=== PATIENT | female | born 1960 | race Caucasian/White ===

== ENCOUNTER 2016-11-29 16:44 | Inpatient (IN) | payer SELFPAY ==
[2016-11-29] VITALS (10 sets, daily range): BP systolic 78–128; BP diastolic 44–77
[~2016-11-29] VITALS: Ht 157.4 cm; Wt 61.9 kg
--- NOTE | ~2016-11-29 | CON ---
[place], [place] REPORT OF CONSULTATION NAME: CHAU AVALOS [facility] #: [id number] UNIT #: [id number] ROOM: 420 DOCTOR: ROGER BURRIS MD BIRTHDATE: [birth year] DOS: 12/03/2016 The patient was seen on 12/03/2016. REASON FOR CONSULTATION: Acute pyelonephritis. CONSULTING DOCTOR: Dr. France CHIEF COMPLAINT: Abdominal pain. HISTORY OF PRESENTING ILLNESS: This is a 55-year-old woman who presented from home with chief complaint of feeling sick with fever, nausea and lack of appetite. This had been going on for the past one week before presentation and it worsened on the day of admission. She also had burning with urination and increased frequency of urination and abnormal odor of urine. She had been throwing up for 2 days prior to presentation. 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 She was admitted in the ICU with sepsis, resuscitated, was placed on broad-spectrum antibiotics for the first 3 days, in spite of that, she continued to spike fever and Infectious Disease consult was obtained. Her urinalysis showed pyuria and urine culture and blood cultures showed E. coli. She had been on Zosyn. PAST MEDICAL HISTORY: Positive for hypertension, depression. PAST SURGICAL HISTORY: History of electrocauterization of bladder per EMR and hemorrhagic kidney when she was 16, which was cauterized. SOCIAL HISTORY: She is a cook. She smokes about a pack per day for the last 34 years, occasional marijuana abuse, drinks 2 drinks every day for the last 30+ years. FAMILY HISTORY: Mother had coronary artery disease. Father is healthy. ALLERGIES: She is allergic to LATEX. HOME MEDICATIONS: Reviewed, includes amlodipine and escitalopram. CURRENT INPATIENT MEDICATIONS: Reviewed. REVIEW OF SYSTEMS: A 14-review of systems otherwise negative unless otherwise specified in the HPI. PHYSICAL EXAMINATION: VITAL SIGNS: Showed a temperature of 98.7, heart rate 51, blood pressure of 90/50, respiratory rate of 18, pulse ox of 94% on nasal cannula. GENERAL APPEARANCE: Awake, alert, oriented in time, place and person. No acute distress. Oral cavity is dry and intact. No ulcers. No thrush. NECK: Supple. No JVD. No lymphadenopathy. HEART: Regular rate and rhythm. S1, S2 normal. No murmurs, gallops or rubs. [place], [place] REPORT OF CONSULTATION NAME: CHAU AVALOS UNIT #: [id number] ROOM: 420 DOCTOR: ROGER BURRIS MD BIRTHDATE: [birth year] LUNGS: Clear to auscultation, diminished in bilateral bases. ABDOMEN: Soft, nontender, nondistended. Midline infraumbilical hernia noted. Mild costovertebral angle tenderness, right more than left. EXTREMITIES: Legs, no edema. SKIN: No rashes or lesions, no other wounds or ulcers. LABORATORY DATA: Reviewed. WBC 9.5 today, hemoglobin 9.7, platelets are 183. Chemistry showing BUN of 9, creatinine of 0.57 from 12/01/2016. Urinalysis from 11/29/2016 shows pyuria. Urine culture shows E. coli from 11/29/2016. Blood cultures on the same day showing E. coli and this is all pansensitive. CAT scan of the abdomen reviewed, bilateral pyelonephritis without evidence of obstruction or hydronephrosis. ASSESSMENT AND PLAN: 1. Acute pyelonephritis with Escherichia coli complicated with bacteremia status post 4 days of IV Zosyn. We will discontinue Zosyn as the Escherichia coli is pansensitive, we will switch her to ceftriaxone 2 grams IV once daily. Repeat BMP tomorrow morning when she is ready for discharge. She could be discharged home within the next 48 hours if she remains afebrile on ciprofloxacin 500 mg twice daily p.o. every 12 hours for the next 10 more days. She has to improve her p.o. intake and increase her mobility and activity prior to that. 2. Escherichia coli bacteremia secondary to above. 3. Sepsis secondary to above, resolved. Thank you for this consult. I will continue to follow. ROGER BURRIS MD CM:CONSTR:REPORT OF CONSULTATION 1450 12/04/16 [id number] interface
[2016-11-29] MEDS ORDERED: AMLODIPINE BESY1 TAB PO (17:00)
[2016-11-29] MEDS ORDERED: ESCITALOPRAM OX20 MG PO (17:01)
[2016-11-29 17:33] LABS: BASO % 0.4 % (0.0-1.0); HEMATOCRIT 36.9 % (37.0-47.0); HEMOGLOBIN 12.6 g/dl (12.0-16.0); LYMPH # 0.9 10*3/uL (1.3-4.4); LYMPH % 15.1 % (27.0-41.0); MEAN CELL VOLUME 96.9 fl (81.0-99.0); MEAN CORPUSCULAR HGB 33.1 pg (27.0-31.0); MEAN CORPUSCULAR HGB CONC 34.1 g/dl (33.0-37.0); MONO # 0.1 10*3/uL (0.1-1.0); MONO % 0.9 % (3.0-9.0); NEUT # 4.7 10*3/uL (2.3-7.9); NEUT % 83.1 % (47.0-73.0); PLATELET COUNT AUTOMATED 333 10*3/uL (130-400); RED BLOOD COUNT 3.81 10*6/uL (4.10-5.10); RED CELL DISTRI WIDTH 12.1 % (0-14.5); WHITE BLOOD COUNT 5.7 10*3/uL (4.8-10.8)
[2016-11-29 17:48] LABS: ALBUMIN 2.9 gm/dl (3.1-4.5); ALKALINE PHOSPHATASE 70 U/L (45-117); BILIRUBIN, TOTAL 0.6 mg/dl (0.2-1.0); BUN 17 mg/dl (7-24); CARBON DIOXIDE 27 mmol/L (21-32); CHLORIDE 98 mmol/L (98-107); EST GLOM FILT AFRICAN AMERICAN > 60 ml/min; GLUCOSE 88 mg/dL (65-99); POTASSIUM 3.7 mmol/L (3.5-5.1); SGOT/AST 44 IU/L (3-35); SGPT/ALT 69 U/L (12-78); SODIUM 137 mmol/L (136-145); TOTAL PROTEIN 7.9 gm/dL (6.4-8.2)
[2016-11-29 18:41] LABS: BILIRUBIN NEGATIVE (NEGATIVE); BLOOD NEGATIVE (NEGATIVE); CLARITY SL CLOUDY (CLEAR); COLOR YELLOW (YELLOW); GLUCOSE NEGATIVE (NEGATIVE); KETONE NEGATIVE (NEGATIVE); LEUKO ESTERASE NEGATIVE (NEGATIVE); NITRITE POSITIVE (NEGATIVE); PH 5.5 (5.0-9.0); PROTEIN TRACE (NEGATIVE); SPECIFIC GRAVITY 1.015 (1.005-1.030); UROBILINOGEN 0.2 E.U./dl (0.2-1.0)
[2016-11-29 18:49] LABS: BACTERIA 4+; EPITHELIAL CELLS 0-2; MUCOUS TRACE; RBC 0-2 rbc/hpf (0-2); URINE REFLEX COMMENT YES (NO); WBC 16-20 wbc/hpf (0-5)
[2016-11-30] VITALS (9 sets, daily range): BP systolic 92–119; BP diastolic 47–70
[2016-11-30 01:26] LABS: CKMB 0.8 ng/ml (0.5-3.6)
[2016-11-30 06:10] LABS: BASO # 0.1 10*3/uL (0.0-0.1); BASO % 0.5 % (0.0-1.0); HEMATOCRIT 31.7 % (37.0-47.0); IG # 0.1 10*3/uL (0.0-0.1); LYMPH # 1.6 10*3/uL (1.3-4.4); LYMPH % 12.1 % (27.0-41.0); MEAN CORPUSCULAR HGB 33.7 pg (27.0-31.0); MEAN CORPUSCULAR HGB CONC 33.1 g/dl (33.0-37.0); MEAN PLATELET VOLUME 9.4 fl (9.6-12.3); MONO # 0.7 10*3/uL (0.1-1.0); MONO % 5.8 % (3.0-9.0); NEUT # 10.4 10*3/uL (2.3-7.9); NEUT % 81.2 % (47.0-73.0); PLATELET COUNT AUTOMATED 264 10*3/uL (130-400); RED BLOOD COUNT 3.12 10*6/uL (4.10-5.10); RED CELL DISTRI WIDTH 12.5 % (0-14.5); WHITE BLOOD COUNT 12.8 10*3/uL (4.8-10.8)
[2016-11-30 06:13] LABS: HEMOGLOBIN 10.5 g/dl (12.0-16.0); MEAN CELL VOLUME 101.6 fl (81.0-99.0)
[2016-11-30 06:26] LABS: HEMOGLOBIN A1c 5.1 % (4.8-5.6)
[2016-11-30 06:49] LABS: ALBUMIN 2.1 gm/dl (3.1-4.5); ALKALINE PHOSPHATASE 51 U/L (45-117); BILIRUBIN, TOTAL 0.5 mg/dl (0.2-1.0); BUN 13 mg/dl (7-24); CARBON DIOXIDE 28 mmol/L (21-32); CHLORIDE 106 mmol/L (98-107); EST GLOM FILT AFRICAN AMERICAN > 60 ml/min; GLUCOSE 88 mg/dL (65-99); POTASSIUM 3.8 mmol/L (3.5-5.1); SGOT/AST 57 IU/L (3-35); SGPT/ALT 72 U/L (12-78); SODIUM 142 mmol/L (136-145); TOTAL PROTEIN 5.8 gm/dL (6.4-8.2)
[2016-11-30 06:51] LABS: MAGNESIUM 1.8 mg/dL (1.5-2.1); THYROID STIM HORMONE (HS) 0.838 uIU/ml (0.358-4.75)
[2016-11-30 08:10] LABS: FOLIC ACID 4.65 ng/mL (>5.38)
[2016-11-30 12:16] LABS: CKMB 0.6 ng/ml (0.5-3.6)
[2016-12-01] VITALS: BP 122/60
[2016-12-01 04:00] VITALS: BP 105/53
[2016-12-01 05:58] LABS: ALBUMIN 2.2 gm/dl (3.1-4.5); ALKALINE PHOSPHATASE 52 U/L (45-117); BILIRUBIN, TOTAL 0.6 mg/dl (0.2-1.0); BUN 9 mg/dl (7-24); CARBON DIOXIDE 28 mmol/L (21-32); CHLORIDE 106 mmol/L (98-107); EST GLOM FILT AFRICAN AMERICAN > 60 ml/min; GLUCOSE 77 mg/dL (65-99); POTASSIUM 3.7 mmol/L (3.5-5.1); SGOT/AST 34 IU/L (3-35); SGPT/ALT 59 U/L (12-78); SODIUM 143 mmol/L (136-145); TOTAL PROTEIN 5.9 gm/dL (6.4-8.2)
[2016-12-01 06:00] LABS: BASO # 0.1 10*3/uL (0.0-0.1); BASO % 0.5 % (0.0-1.0); HEMATOCRIT 34.3 % (37.0-47.0); HEMOGLOBIN 11.1 g/dl (12.0-16.0); IG # 0.1 10*3/uL (0.0-0.1); LYMPH # 1.4 10*3/uL (1.3-4.4); LYMPH % 12.8 % (27.0-41.0); MEAN CELL VOLUME 101.5 fl (81.0-99.0); MEAN CORPUSCULAR HGB 32.8 pg (27.0-31.0); MEAN CORPUSCULAR HGB CONC 32.4 g/dl (33.0-37.0); MEAN PLATELET VOLUME 9.8 fl (9.6-12.3); MONO # 0.9 10*3/uL (0.1-1.0); MONO % 7.9 % (3.0-9.0); NEUT # 8.6 10*3/uL (2.3-7.9); NEUT % 78.3 % (47.0-73.0); PLATELET COUNT AUTOMATED 256 10*3/uL (130-400); RED BLOOD COUNT 3.38 10*6/uL (4.10-5.10); RED CELL DISTRI WIDTH 12.5 % (0-14.5)
[2016-12-01 08:00] VITALS: BP 105/62
[2016-12-01 12:00] VITALS: BP 123/75
[2016-12-01 16:00] VITALS: BP 120/70
[2016-12-01 20:00] VITALS: BP 98/62
[2016-12-02] VITALS (7 sets, daily range): BP systolic 88–124; BP diastolic 54–68
[2016-12-02 07:47] LABS: HEMATOCRIT 29.5 % (37.0-47.0); HEMOGLOBIN 9.8 g/dl (12.0-16.0); MEAN CORPUSCULAR HGB 33.2 pg (27.0-31.0); MEAN CORPUSCULAR HGB CONC 33.2 g/dl (33.0-37.0); MEAN PLATELET VOLUME 9.7 fl (9.6-12.3); PLATELET COUNT AUTOMATED 202 10*3/uL (130-400); RED BLOOD COUNT 2.95 10*6/uL (4.10-5.10); RED CELL DISTRI WIDTH 12.5 % (0-14.5); WHITE BLOOD COUNT 12.7 10*3/uL (4.8-10.8)
[2016-12-02 08:19] LABS: EOSINOPHIL # 0.1 10*3/uL (0-0.4); EOSINOPHILS 1 % (1-4); LYMPHOCYTE # 1.5 10*3/uL (1.3-4.4); MONOCYTE # 0.5 10*3/uL (0.1-1.0); MYELOCYTES 1 % (0-0); NEUTROPHIL # 10.4 10*3/uL (2.3-7.9); NEUTROPHILS 82 % (47-73); PLATELET SUFFICIENCY NORMAL (NORMAL); TOTAL CELLS COUNTED 100 #CELLS; TOXIC GRANULATION SLIGHT
[2016-12-03] VITALS: BP 100/40
[2016-12-03 04:00] VITALS: BP 101/79
[2016-12-03 06:37] LABS: HEMATOCRIT 28.9 % (37.0-47.0); HEMOGLOBIN 9.7 g/dl (12.0-16.0); MEAN CELL VOLUME 99.7 fl (81.0-99.0); MEAN CORPUSCULAR HGB 33.4 pg (27.0-31.0); MEAN CORPUSCULAR HGB CONC 33.6 g/dl (33.0-37.0); PLATELET COUNT AUTOMATED 183 10*3/uL (130-400); RED CELL DISTRI WIDTH 12.6 % (0-14.5); WHITE BLOOD COUNT 9.5 10*3/uL (4.8-10.8)
[2016-12-03 07:25] LABS: EOSINOPHIL # 0.3 10*3/uL (0-0.4); EOSINOPHILS 3 % (1-4); LYMPHOCYTE # 0.7 10*3/uL (1.3-4.4); METAMYELOCYTES 1 % (0-0); MONOCYTE # 0.5 10*3/uL (0.1-1.0); NEUTROPHILS 84 % (47-73); PLATELET SUFFICIENCY NORMAL (NORMAL); TOTAL CELLS COUNTED 100 #CELLS; TOXIC GRANULATION MODERATE
[2016-12-03 08:00] VITALS: BP 110/76
[2016-12-03 12:00] VITALS: BP 90/50
[2016-12-03 16:00] VITALS: BP 97/55
[2016-12-03 20:00] VITALS: BP 104/61
[2016-12-04] VITALS: BP 117/64
[2016-12-04 06:52] LABS: BUN 6 mg/dl (7-24); CARBON DIOXIDE 30 mmol/L (21-32); CHLORIDE 109 mmol/L (98-107); EST GLOM FILT AFRICAN AMERICAN > 60 ml/min; GLUCOSE 107 mg/dL (65-99); POTASSIUM 3.1 mmol/L (3.5-5.1); SODIUM 146 mmol/L (136-145)
[2016-12-04 08:00] VITALS: BP 110/76
[2016-12-04 08:45] VITALS: BP 116/72
[2016-12-04 12:00] VITALS: BP 124/71
[2016-12-04 16:00] VITALS: BP 110/69
[2016-12-04 20:00] VITALS: BP 102/67
[2016-12-05] VITALS: BP 111/75
[2016-12-05 07:48] LABS: BASO # 0.1 10*3/uL (0.0-0.1); BASO % 0.5 % (0.0-1.0); HEMATOCRIT 30.8 % (37.0-47.0); HEMOGLOBIN 9.9 g/dl (12.0-16.0); IG # 0.2 10*3/uL (0.0-0.1); LYMPH % 9.7 % (27.0-41.0); MEAN CELL VOLUME 101.3 fl (81.0-99.0); MEAN CORPUSCULAR HGB 32.6 pg (27.0-31.0); MEAN CORPUSCULAR HGB CONC 32.1 g/dl (33.0-37.0); MEAN PLATELET VOLUME 10.3 fl (9.6-12.3); MONO # 0.8 10*3/uL (0.1-1.0); MONO % 7.5 % (3.0-9.0); NEUT # 8.6 10*3/uL (2.3-7.9); NEUT % 80.9 % (47.0-73.0); PLATELET COUNT AUTOMATED 201 10*3/uL (130-400); RED BLOOD COUNT 3.04 10*6/uL (4.10-5.10); RED CELL DISTRI WIDTH 13.2 % (0-14.5); WHITE BLOOD COUNT 10.6 10*3/uL (4.8-10.8)
[2016-12-05 08:00] VITALS: BP 120/64
[2016-12-05 08:27] LABS: BUN 4 mg/dl (7-24); CARBON DIOXIDE 31 mmol/L (21-32); CHLORIDE 108 mmol/L (98-107); EST GLOM FILT AFRICAN AMERICAN > 60 ml/min; GLUCOSE 107 mg/dL (65-99); MAGNESIUM 1.6 mg/dL (1.5-2.1); PHOSPHOROUS 1.4 mg/dL (2.5-4.9); POTASSIUM 3.4 mmol/L (3.5-5.1); SODIUM 146 mmol/L (136-145)
[2016-12-05 12:00] VITALS: BP 131/78
[2016-12-05] MEDS ORDERED: CIPRO500 MG PO (12:10)
[2016-12-05] MEDS ORDERED: AMLODIPINE BESY1 TAB PO (12:13)
[2016-12-05] MEDS ORDERED: ESCITALOPRAM OX20 MG PO (12:13)
== END 2016-12-05 15:55 | disposition home or self-care (01) | DRG 871 ==
LOC: ED 16:44 → EDHOLD 20:01 → 4E 20:01 → ICCU 11-30 14:43 → 4E 12-02 22:01
PROVIDERS: Hospitalist; Internal Medicine; Internal Medicine Hospice and Palliative Medicine; Internal Medicine Infectious Disease; Registered Nurse
DX: A41.51 Sepsis due to Escherichia coli [E. coli] (principal); R65.21 Severe sepsis with septic shock; E43 Unspecified severe protein-calorie malnutrition; N10 Acute pyelonephritis; I10 Essential (primary) hypertension; F12.10 Cannabis abuse, uncomplicated; F10.10 Alcohol abuse, uncomplicated; Y90.9 Presence of alcohol in blood, level not specified; F32.9 Major depressive disorder, single episode, unspecified; D64.9 Anemia, unspecified; B96.20 Unspecified Escherichia coli [E. coli] as the cause of diseases classified elsewhere; I35.1 Nonrheumatic aortic (valve) insufficiency; Z72.0 Tobacco use; Z98.890 Other specified postprocedural states; Z82.49 Family history of ischemic heart disease and other diseases of the circulatory system; Z91.040 Latex allergy status; Z79.899 Other long term (current) drug therapy; Z68.24 Body mass index [BMI] 24.0-24.9, adult

== ENCOUNTER → 2016-12-11 | Outpatient (CLI) | payer SELFPAY ==
[~2016-12-11] MED LIST: AMLODIPINE BESY1 TAB PO; CIPRO500 MG PO; ESCITALOPRAM OX20 MG PO
== END ==
LOC: RESCLI 01:33
DX: Z12.31 Encounter for screening mammogram for malignant neoplasm of breast (principal); Z91.89 Other specified personal risk factors, not elsewhere classified; E78.5 Hyperlipidemia, unspecified; E83.39 Other disorders of phosphorus metabolism; E87.6 Hypokalemia; F10.10 Alcohol abuse, uncomplicated; D52.0 Dietary folate deficiency anemia; R53.83 Other fatigue; E53.8 Deficiency of other specified B group vitamins; Z12.4 Encounter for screening for malignant neoplasm of cervix; Z71.6 Tobacco abuse counseling; Z72.0 Tobacco use

== ENCOUNTER 2025-05-14 14:19 | Observation (INO) | payer OTHER ==
[~2025-05-14] VITALS: Ht 157.5 cm; Wt 71.9 kg
[2025-05-14 14:32] VITALS: BP 154/64
[2025-05-14 15:10] LABS: BASO % 0.5 % (0.0-1.0); EOS % 0.5 % (1.0-4.0); HEMATOCRIT 47.1 % (37.0-47.0); MEAN CELL VOLUME 100.4 fl (81.0-99.0); MEAN CORPUSCULAR HGB 34.5 pg (27.0-31.0); MEAN CORPUSCULAR HGB CONC 34.4 g/dl (33.0-37.0); MEAN PLATELET VOLUME 9.9 fl (9.6-12.3); MONO # 0.8 10*3/uL (0.1-1.0); MONO % 12.3 % (3.0-9.0); NEUT # 4.7 10*3/uL (2.3-7.9); NEUT % 70.4 % (47.0-73.0); PLATELET COUNT AUTOMATED 149 10*3/uL (130-400); RED BLOOD COUNT 4.69 10*6/uL (4.10-5.10); RED CELL DISTRI WIDTH 13.1 % (0-14.5); WHITE BLOOD COUNT 6.6 10*3/uL (4.8-10.8)
[2025-05-14] MEDS ORDERED: Thiamine 200 MG/2 ML VIAL IV ONE (15:10)
[2025-05-14 15:38] LABS: CPK 130 U/L (34-171)
[2025-05-14 15:39] LABS: ACT PARTIAL THROMBO TIME 29.8 SECONDS (20.0-32.1)
[2025-05-14 15:40] LABS: ETHYL ALCOHOL < 3.0 mg/dl (<3)
[2025-05-14] MEDS ORDERED: SODIUM CHLORIDE 0.9% 100 ML BAG IV ONE (15:50)
[2025-05-14] MEDS ORDERED: IOHEXOL 350 MG/ML 100 ML VIAL IV ONE (15:50)
[2025-05-14 16:13] LABS: ALKALINE PHOSPHATASE 69 U/L (46-116); BUN 31 mg/dl (9-23); CHLORIDE 99 mmol/L (98-107); POTASSIUM 3.2 mmol/L (3.4-5.1); SGPT/ALT 36 U/L (5-49); TOTAL PROTEIN 7.6 gm/dL (6.0-8.0)
[2025-05-14 16:15] LABS: BILIRUBIN Negative (Negative); BLOOD Negative (Negative); CLARITY Clear (Clear); COLOR Yellow (Yellow); GLUCOSE Negative (Negative); KETONE Negative (Negative); LEUKO ESTERASE Negative (Negative); NITRITE Negative (Negative); PH 5.5 (4.5-8.0)
[2025-05-14 16:23] LABS: URINE AMPHETAMINES Negative (1000ng/ml); URINE BARBITURATES Negative (200ng/ml); URINE BENZODIAZEPINES Negative (200ng/ml); URINE CANNABINOIDS (THC) Positive (50ng/ml); URINE COCAINE Negative (300ng/ml); URINE METHADONE Negative (300ng/ml); URINE OPIATES Negative (300ng/ml); URINE PHENCYCLIDINE Negative (25ng/ml)
[2025-05-14 16:25] LABS: BACTERIA 2+; MUCOUS 1+; RBC 0-2 rbc/hpf (0-2)
[2025-05-14] MEDS ORDERED: POTASSIUM CHLORIDE 20 MEQ TAB PO ONE (16:30)
[2025-05-14] MEDS ORDERED: diazePAM 10 MG/2 ML SYR IV ONE (18:20)
[2025-05-14 18:49] VITALS: BP 144/58
[2025-05-14] MEDS ORDERED: HYDROCHLOROTHIA25 M1 PO (18:50)
[2025-05-14] MEDS ORDERED: CITALOPRAM40 MG PO (18:50)
[2025-05-14] MEDS ORDERED: BUSPAR15 MG PO (18:51)
[2025-05-14] MEDS ORDERED: BISACODYL 5 MG TAB PO PRN (19:25)
[2025-05-14] MEDS ORDERED: ACETAMINOPHEN 650 MG SUPP R PRN (19:25)
[2025-05-14] MEDS ORDERED: ACETAMINOPHEN 325 MG TAB PO PRN (19:25)
[2025-05-14] MEDS ORDERED: TEMAZEPAM 15 MG CAP PO PRN (19:25)
[2025-05-14] MEDS ORDERED: Acetaminophen/Hydrocodone 5 MG/325 MG TABLET PO PRN (19:25)
[2025-05-14] MEDS ORDERED: Ondansetron Hydrochloride 4 MG/2 ML VIAL IV PRN (19:25)
[2025-05-14] MEDS ORDERED: Magnesium Hydroxide 30 ML UDC PO PRN (19:25)
[2025-05-14] MEDS ORDERED: BISACODYL 10 MG SUPP R PRN (19:25)
[2025-05-14 19:26] VITALS: BP 127/63
[2025-05-14] MEDS ORDERED: cefTRIAXone Sodium 1 GM in SYRINGE INFUSION 10 ML IV SCH (23:00)
[2025-05-14 23:26] VITALS: BP 144/64
[2025-05-15] VITALS: BP 166/54
[2025-05-15] MEDS ORDERED: LORazepam 1 MG TAB PO PRN (01:20)
[2025-05-15 06:55] LABS: BASO % 0.7 % (0.0-1.0); EOS % 0.2 % (1.0-4.0); HEMATOCRIT 46.4 % (37.0-47.0); MEAN CELL VOLUME 102.9 fl (81.0-99.0); MEAN CORPUSCULAR HGB 34.6 pg (27.0-31.0); MEAN CORPUSCULAR HGB CONC 33.6 g/dl (33.0-37.0); MEAN PLATELET VOLUME 10.2 fl (9.6-12.3); MONO # 0.6 10*3/uL (0.1-1.0); MONO % 12.6 % (3.0-9.0); NEUT # 2.4 10*3/uL (2.3-7.9); PLATELET COUNT AUTOMATED 129 10*3/uL (130-400); RED BLOOD COUNT 4.51 10*6/uL (4.10-5.10); RED CELL DISTRI WIDTH 12.9 % (0-14.5); WHITE BLOOD COUNT 4.5 10*3/uL (4.8-10.8)
[2025-05-15 07:15] LABS: ALKALINE PHOSPHATASE 58 U/L (46-116); CHLORIDE 99 mmol/L (98-107); CHOLESTEROL 191 mg/dL (<200); FREE T4 1.03 ng/dl (0.89-1.76); LDL CHOLESTEROL 107 mg/dL (9-159); POTASSIUM 3.4 mmol/L (3.4-5.1); SGPT/ALT 37 U/L (5-49); TOTAL PROTEIN 6.8 gm/dL (6.0-8.0); TRIGLYCERIDES 61 mg/dl (<150)
[2025-05-15 07:16] LABS: BUN 20 mg/dl (9-23)
[2025-05-15 07:23] LABS: VITAMIN D, 25-HYDROXY 35.5 ng/mL (30-100)
[2025-05-15 08:00] VITALS: BP 163/75
[2025-05-15] MEDS ORDERED: ATORVASTATIN CALCIUM 40 MG TABLET PO SCH (10:00)
[2025-05-15] MEDS ORDERED: Enoxaparin Sodium 40 MG/0.4 ML SYR SC SCH (10:00)
[2025-05-15] MEDS ORDERED: ASPIRIN 325 MG ENTERIC COATED PO SCH (10:00)
[2025-05-15] MEDS ORDERED: ASPIRIN, CHEWABLE 81 MG TAB PO SCH (10:00)
[2025-05-15] MEDS ORDERED: Thiamine 100 MG TAB PO SCH (10:00)
[2025-05-15 12:00] VITALS: BP 177/72
[2025-05-15] MEDS ORDERED: hydroCHLOROthiazide 25 MG TAB PO SCH (14:55)
[2025-05-15 16:00] VITALS: BP 132/51
[2025-05-15] MEDS ORDERED: ATORVASTATIN CA40 M1 PO (16:28)
[2025-05-15] MEDS ORDERED: ASPIRIN CHILDRE81 MG PO (16:28)
[2025-05-15] MEDS ORDERED: busPIRone Hydrochloride 15 MG TAB PO SCH (22:00)
[2025-05-16] MEDS ORDERED: CITALOPRAM 20 MG TAB PO SCH (10:00)
== END 2025-05-15 17:31 | disposition home or self-care (01) ==
LOC: ED 14:19 → 5E 18:24 → EDHOLD 18:24 → 5E 18:24
PROVIDERS: Emergency Medicine; Student in an Organized Health Care Education/Training Program; ADMIT Family Medicine; ATTEND Family Medicine
DX: G45.9 Transient cerebral ischemic attack, unspecified (principal); R74.01 Elevation of levels of liver transaminase levels; E87.6 Hypokalemia; D75.1 Secondary polycythemia; D72.819 Decreased white blood cell count, unspecified; D75.89 Other specified diseases of blood and blood-forming organs; I10 Essential (primary) hypertension; F10.10 Alcohol abuse, uncomplicated; D75.839 Thrombocytosis, unspecified; F32.A Depression, unspecified; E78.5 Hyperlipidemia, unspecified; F41.9 Anxiety disorder, unspecified; J44.9 Chronic obstructive pulmonary disease, unspecified; F17.210 Nicotine dependence, cigarettes, uncomplicated; Z79.899 Other long term (current) drug therapy